=== PATIENT | male | born 1960 ===

== ENCOUNTER → 2018-07-12 19:11 | Outpatient (REF) | payer OTHER, SELFPAY ==
[2018-07-12 19:28] LABS: Add Manual Diff / Slide Review NO; Basophils Absolute Auto 0 /uL (0-100); Basophils Percent Auto 0.2 % (0-2); Eosinophils Absolute Auto 100 /uL (0-450); Eosinophils Percent Auto 1.1 % (2-4); Hemoglobin 16.1 g/dL (13.5-17.5); Lymphocytes Absolute Auto 3100 /uL (1100-4500); Lymphocytes Percent Auto 33.4 % (25-40); Mean Corpuscular HGB Conc 34.2 % (30-36); Mean Corpuscular Hemoglobin 30.2 PG (26-34); Mean Corpuscular Volume 88.4 fL (80-100); Monocytes Absolute Auto 600 /uL (0-900); Monocytes Percent Auto 6.8 % (3-14); Neutrophils Absolute Auto 5400 /uL (1500-7000); Neutrophils Percent Auto 58.5 % (50-75); Platelet Count 212 X10^3/uL (150-400); Red Blood Cell Count 5.32 X10^6/uL (4.5-5.9); Red Cell Distribution Width 13.2 % (11.6-14.8); White Blood Cell Count 9.2 X10^3/uL (4.5-11.0)
[2018-07-12 19:39] LABS: Alanine Aminotransferase 31 IU/L (21-72); Albumin Globulin Ratio 1.9 (1.0-2.8); Alkaline Phosphatase 59 U/L (38-126); Aspartate Aminotransferase 40 IU/L (17-59); BUN Creatinine Ratio 23.3 (6-22); Bilirubin Total 1.4 mg/dL (0.2-1.3); Blood Urea Nitrogen 21 mg/dL (9-20); Calcium 9.7 mg/dL (8.4-10.2); Carbon Dioxide 24 mmol/L (22-32); Chloride 102 mmol/L (98-107); Cholesterol 236 mg/dL (140-199); Estimated Glomerular Filt Rate > 60.0 mL/min (>60); Globulin 2.6 g/dL (1.7-4.1); Glucose 106 mg/dL (70-100); HDL Cholesterol 58 mg/dL (40-60); HEMOLYSIS 26 (0-50); LDL Cholesterol Calculated 135 mg/dL (<100); Potassium 3.9 mmol/L (3.4-5.1); Sodium 140 mmol/L (137-145); Total Protein 7.6 g/dL (6.3-8.2); Triglycerides 216 mg/dL (35-150)
[2018-07-12 19:44] LABS: Hemoglobin A1C% w Est Avg Glu 6.8 % (4.0-6.0)
[2018-07-12 20:09] LABS: Thyroid Stimulating Hormone 2.38 uIU/mL (0.47-4.68)
[2018-07-12 20:45] LABS: Folate 16.6 ng/mL (2.76-20.0); Vitamin B12 426 pg/mL (239-931)
== END ==
LOC: LAB 19:11
PROVIDERS: Visit Provider Nurse Practitioner Acute Care
DX: R53.83 Other fatigue (principal); R53.81 Other malaise; E88.81 Metabolic syndrome and other insulin resistance; E11.9 Type 2 diabetes mellitus without complications; I10 Essential (primary) hypertension
CPT/HCPCS: 80053; 80061; 82607; 82746; 83036; 84153; 84443; 85025